=== PATIENT | female | born 1930 | race Caucasian/White ===

== ENCOUNTER 2017-05-04 13:59 | Emergency (ER) | payer MEDICARE, OTHER ==
--- NOTE | 2017-05-13 18:05 | ER ---
ADMIT: 05/04/2017 RM/LOC: ER [facility] MR#: [id number] [address] [address] [place] [address] Emergency Room Report SEX: F AGE: 87 : 1930 DATE: 05/04/2017 ADDENDUM: CHIEF COMPLAINT: Numbness and tingling on right leg. HISTORY OF PRESENT ILLNESS: This is an 87-year-old female who was eating lunch then went to go stand up and walk and she said her leg felt asleep on the lower portion from the knee down. When she arrives she says it is a little bit better, but does have a slight weakness of the right leg compared to the left. She was worked up for a stroke. 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 PT/INR are therapeutic at 2.72. BMP is normal except for a BUN of 30 and a creatinine of 1.8. Her GFR is 25, her glucose is 112. CBC is normal except for a hemoglobin of 10.9, and hematocrit of 32.9. EKG shows sinus bradycardia at a rate of 55, over-read by Dr. Aquino. I did discharge the patient home. She felt actually quite a bit better. I did tell her to follow up with Dr. Nam within the next week to recheck. CLINICAL IMPRESSION: Paresthesia of the right leg, resolved in ER. BRITTANY Hitchcock / Miguel Aquino MD / margil JOB #: [id number] CC: Miguel Aquino MD, Attending Physician Bakari Nam MD, Family Physician
== END 2017-05-04 16:10 | disposition home or self-care (01) ==
LOC: ER 13:59
DX: R20.9 Unspecified disturbances of skin sensation (principal); I10 Essential (primary) hypertension; I48.91 Unspecified atrial fibrillation; J45.909 Unspecified asthma, uncomplicated; Z88.0 Allergy status to penicillin